=== PATIENT | female | born 1940 | race Caucasian/White ===

== ENCOUNTER 2020-10-08 10:39 | Emergency (ER) | payer MEDICARE, OTHER ==
--- NOTE | 2020-10-08 12:00 | EDM.PDOC ---
ED HPI GENERAL MEDICAL PROBLEM - General Chief Complaint: Lower Extremity Injury/Pain Stated Complaint: SPOT ON L LEG/ANKLE Time Seen by Provider: 10/08/20 10:45 - History of Present Illness INITIAL COMMENTS - FREE TEXT/NARRATIVE: Patient comes in with complaints of left lower leg pain started yesterday. She is not had any falls or injuries. She did go for a walk this morning and that went well it was when she was resting at home that she felt some pain. She is pointing to the lower left leg below the calf muscle down to just above the ankle area on the medial side when describing the area of discomfort. She is concerned about a blood clot. Left Lower Leg Pain Score (Numeric/FACES): 3 - Related Data Allergies Allergy/AdvReac Type Severity Reaction Status Date / Time No Known Allergies Allergy Verified 10/08/20 10:49 Home Meds: Home Meds Lutein/Min/Vit C/Vit E Acetate [Ocuvite Lutein] 1 tab PO DAILY 10/08/20 [History] Past Medical History - Past Surgical History GI Surgical History: Reports: Appendectomy Social & Family History - Recreational Drug Use Recreational Drug Use: No Review of Systems - Review of Systems Review Of Systems: Comprehensive ROS is negative, except as noted in HPI. Musculoskeletal: Reports: Leg Pain (involving the left lower leg.) ED EXAM, GENERAL - Physical Exam Exam: See Below Extremities: Other (Examining the patient's left lower leg reveals a skin is intact there is no obvious swelling or discoloration there is tenderness with leg palpation on the medial side of the left lower leg just below the calf muscle I do not feel any induration or mass the ankle is nontender patient is able to blas) Course - Vital Signs Last Recorded V/S: Last Vital Signs Temp 97 F 10/08/20 10:49 Pulse 83 10/08/20 10:49 Resp 18 10/08/20 10:49 BP 160/82 H 10/08/20 10:49 Pulse Ox 98 10/08/20 10:49 - Orders/Labs/Meds Labs: Laboratory Tests 10/08/20 10/08/20 10/08/20 Range/Units 11:19 11:19 11:19 WBC 6.6 (4.0-11.0) K/uL RBC 4.55 (3.80-5.80) M/uL Hgb 14.3 (11.5-16.5) g/dL Hct 43.0 (37.0-47.0) % MCV 95 (76-96) fL MCH 31.4 (27.0-32.0) pg MCHC 33.3 (31.0-35.0) g/dL RDW 13.7 (11.0-16.0) % Plt Count 228 (150-500) K/uL MPV 10.7 H (6.0-10.0) fL Neut % (Auto) 54.2 (45.0-70.0) % Lymph % (Auto) 25.1 (20.0-40.0) % [place] % (Auto) 13.1 H (3.0-10.0) % Eos % (Auto) 7.0 H (1.0-5.0) % Baso % (Auto) 0.6 H (0.0-0.5) % Neut # (Auto) 3.57 (2.00-7.50) K/uL Lymph # (Auto) 1.65 (1.50-4.00) K/uL [place] # (Auto) 0.86 H (0.20-0.80) K/uL Eos # (Auto) 0.46 H (0.04-0.40) K/uL Baso # (Auto) 0.04 (0.02-0.10) K/uL D-Dimer, Quantitative 112 (0-400) ng/mL Sodium 144 (136-145) mmol/L Potassium 3.8 (3.5-5.1) mmol/L Chloride 105 (98-107) mmol/L Carbon Dioxide 34.1 H (21.0-32.0) mmol/L Anion Gap 8.7 (5.0-15.0) mmol/L BUN 18 (8-26) mg/dL Creatinine 0.91 (0.55-1.02) mg/dL Est Cr Clr Drug Dosing 40.79 mL/min Estimated GFR (MDRD) 59 L (>60) MLS/MIN BUN/Creatinine Ratio 19.8 (6-25) Glucose 106 H (74-100) mg/dL Calcium 9.3 (8.5-10.1) mg/dL Total Bilirubin 0.4 (0.0-1.0) mg/dL AST 19 (15-37) U/L ALT 28 (12-78) U/L Alkaline Phosphatase 72 (46-116) U/L Total Protein 7.2 (6.4-8.2) g/dL Albumin 3.7 (3.4-5.0) g/dL Globulin 3.5 (2.2-4.2) g/dL Albumin/Globulin Ratio 1.1 (0.8-2.0) - Re-Assessments/Exams Free Text/Narrative Re-Assessment/Exam: 10/08/20 11:58 Labs today include CBC, CMP, and D-dimer. Lab results are all normal. Departure - Departure Time of Disposition: 11:55 Disposition: Home, Self-Care 01 Condition: Good Clinical Impression: Leg pain, left - Discharge Information *PRESCRIPTION DRUG MONITORING PROGRAM REVIEWED*: Not Applicable *COPY OF PRESCRIPTION DRUG MONITORING REPORT IN PATIENT JESU: Not Applicable Instructions: Deep Vein Thrombosis Referrals: PCP,None [Primary Care Provider] - Forms: ED Department Discharge Care Plan Goals: take a baby aspirin daily. activity as tolerated. Follow up tomorrow with a Ultrasound of left lower leg. Sepsis Event Note (ED) - Evaluation Sepsis Screening Result: No Definite Risk - Focused Exam Vital Signs: Vital Signs Temp Pulse Resp BP Pulse Ox 10/08/20 10:49 97 F 83 18 160/82 H 98
== END 2020-10-08 12:00 | disposition home or self-care (01) ==
LOC: LB.ED 10:39
DX: M79.605 Pain in left leg (principal)
CPT/HCPCS: 36415; 80053; 85025; 85379; 99283